=== PATIENT | female | born 1950 | race Caucasian/White ===

== ENCOUNTER 2021-09-08 19:18 | Emergency (ER) | payer MEDICARE ==
[2021-09-08] MEDS ORDERED: Ondansetron ODT 4 MG TAB ONE (20:10)
[2021-09-08] MEDS ORDERED: Cyclobenzaprine 10 MG TAB ONE (21:14)
[2021-09-08] MEDS ORDERED: Ketorolac Tromethamine 30 MG/ML VIAL ONE (21:14)
[2021-09-08] MEDS ORDERED: Promethazine HCl 25 MG SUPP PR SCH (21:30)
== END 2021-09-08 21:48 | disposition home or self-care (01) ==
LOC: CSHERS 19:18
DX: M25.551 Pain in right hip (principal); M62.830 Muscle spasm of back; E78.5 Hyperlipidemia, unspecified; I10 Essential (primary) hypertension; Z79.899 Other long term (current) drug therapy
CPT/HCPCS: 96372; 99283; J1885; Q0162

== ENCOUNTER 2021-09-21 11:55 | Emergency (ER) | payer MEDICARE ==
[2021-09-21] MEDS ORDERED: Ibuprofen 200 MG TAB ONE (12:53)
[2021-09-21] MEDS ORDERED: Acetaminophen 500 MG TAB ONE (12:54)
== END 2021-09-21 14:04 | disposition home or self-care (01) ==
LOC: CSHERS 11:55
DX: M79.604 Pain in right leg (principal); E78.5 Hyperlipidemia, unspecified; E78.00 Pure hypercholesterolemia, unspecified; I10 Essential (primary) hypertension
CPT/HCPCS: 72100